=== PATIENT | male | born 1955 | race Hispanic/Latino ===

== ENCOUNTER → 2024-12-17 | Outpatient (CLI) | payer OTHER ==
--- NOTE | 2024-12-17 11:49 | HMCIMG ---
KNEE 3VWS LT REASON: RHEUMATOID ARTHRITIS TECHNIQUE: 3 views were obtained. FINDINGS: There is no evidence of fracture or dislocation. There is no joint effusion. The soft tissues appear unremarkable. There is no evidence of a radiopaque foreign body. IMPRESSION: No acute findings.
--- NOTE | 2024-12-17 11:50 | HMCIMG ---
ANKLE COMP 3VWS LT REASON: RHEUMATOID ARTHRITIS TECHNIQUE: views were obtained. FINDINGS: There is no evidence of fracture or dislocation. There is no joint effusion. There is mild bimalleolar soft tissue swelling. There is no evidence of a radiopaque foreign body. IMPRESSION: No acute findings. Mild bimalleolar soft tissue swelling
== END | disposition home or self-care (01) ==
LOC: RAH 08:25
PROVIDERS: ATTEND Chiropractor
DX: M25.472 Effusion, left ankle (principal); M06.9 Rheumatoid arthritis, unspecified
CPT/HCPCS: 36415; 73562; 73610; 86431